=== PATIENT | female | born 1940 | race Caucasian/White ===

== ENCOUNTER 2017-02-07 14:07 | Emergency (ER) | payer MEDICARE ==
[~2017-02-07] VITALS: Ht 162.6 cm; Wt 77.1 kg
[2017-02-07 14:19] VITALS: BP 135/81
--- NOTE | 2017-02-07 14:22 | PHYS DOC ---
Adult General Chief Complaint Chief Complaint: LACERATION/AVULSION [facility] HPI Patient is a 76 year old female presents emergency room with complaint of a laceration to right index finger that occurred within the past 30 minutes. Patient states she cut her finger on a "old jelly jar" at home. She denies any additional injuries at this time. She cannot remember when her last tetanus shot was. Review of Systems Review of Systems Constitutional: Denies fever or chills [] Eyes: Denies change in visual acuity, redness, or eye pain [] HENT: Denies nasal congestion or sore throat [] Respiratory: Denies cough or shortness of breath [] Cardiovascular: No additional information not addressed in HPI [] GI: Denies abdominal pain, nausea, vomiting, bloody stools or diarrhea [] : Denies dysuria or hematuria [] Musculoskeletal: Denies back pain or joint pain [] Integument: Denies rash or skin lesions [] Neurologic: Denies headache, focal weakness or sensory changes [] Endocrine: Denies polyuria or polydipsia [] Current Medications Current Medications Current Medications Medications (Trade) Dose Ordered Sig/Real Start Time Stop Time Status Last Admin Dose Admin Diphtheria/ Tetanus/Acell Pertussis (Boostrix) 0.5 ml ONCE ONCE 02/07/17 15:00 02/07/17 15:01 Lidocaine/Sodium Bicarbonate (Buffered Lidocaine 1%) 20 ml 1X ONCE 02/07/17 15:00 02/07/17 15:01 Allergies Allergies Allergies Coded Allergies Type Severity Reaction Last Updated Verified No Known Drug Allergies 02/07/17 No Physical Exam Physical Exam Constitutional: Well developed, well nourished, mild distress, non-toxic appearance. [] HENT: Normocephalic, atraumatic, bilateral external ears normal, oropharynx moist, no oral exudates, nose normal. [] Eyes: PERRLA, EOMI, conjunctiva normal, no discharge. [] Neck: Normal range of motion, no tenderness, supple, no stridor. [] Cardiovascular:Heart rate regular rhythm, no murmur [] Lungs & Thorax: Bilateral breath sounds clear to auscultation [] Abdomen: Bowel sounds normal, soft, no tenderness, no masses, no pulsatile masses. [] Skin: Warm, dry, no erythema, no rash. [] Back: No tenderness, no CVA tenderness. [] Extremities: Right index finger with a flap laceration to the lateral aspect of the proximal phalanx. This laceration comes near the midline in the joint space but does not cross. Extensor and flexor mechanism is intact at both the DIPJ PIPJ. Fingers neurovascularly intact with capillary refill less than 2 seconds. Neurologic: Alert and oriented X 3, normal motor function, normal sensory function, no focal deficits noted. [] Psychologic: Affect normal, judgement normal, mood normal. [] Current Patient Data Vital Signs Vital Signs Date Time Temp Pulse Resp B/P Pulse Ox O2 Delivery O2 Flow Rate FiO2 02/07/17 14:19 86 18 98 EKG EKG [] Radiology/Procedures Radiology/Procedures Procedure note: 3.5 cm laceration to the base of the proximal phalanx of left index finger was anesthetized with buffered 1% lidocaine. Wound was cleansed with Betadine solution and rinsed with copious amounts of saline. Wound was explored for foreign bodies. No foreign bodies were found. The laceration did not extend into the extensor tendon region or the joint capsule of the second MCP J. Wound margins were approximated utilizing 5-0 nylon in a single-layer closure of a simple interrupted fashion for total of 7 stitches. Nonstick gauze was placed over top the laceration and bandaged in place with Coban. Patient tolerated the procedure well. Course & Med Decision Making Course & Med Decision Making Pertinent Labs and Imaging studies reviewed. (See chart for details) [] Dragon Disclaimer Dragon Disclaimer This electronic medical record was generated, in whole or in part, using a voice recognition dictation system. Departure Departure Impression: Primary Impression: Finger laceration Disposition: 01 HOME, SELF-CARE Condition: IMPROVED Patient Instructions: Diphtheria Toxoid; Tetanus Toxoid Adsorbed, DT, Td, Laceration Care, Adult, [id number] Additional Instructions: 1. Stitches will need to be removed in 10 days. Your okay to wash your hands and shower. Do not soak your hands. 2. Review the discharge instructions provided for self-care and reasons to return to the emergency department. 3. Contact your primary care doctor's office in the morning to schedule follow- up appointment for wound check and suture removal. VANNESSA BLEVINS Feb 07, 2017 14:22
[2017-02-07] MEDS ORDERED: DIPHTH,PERTUSS(ACELL),TET TOX 0.5 ML DISP.SYRIN. VAX IM ONE (15:00)
[2017-02-07] MEDS ORDERED: LIDOCAINE 1% / SOD BICARB 8.4% 20 ML VIAL. IJ ONE (15:00)
== END 2017-02-07 15:05 | disposition home or self-care (01) ==
LOC: ER 14:07
DX: S61.210A Laceration without foreign body of right index finger without damage to nail, initial encounter (principal); W25.XXXA Contact with sharp glass, initial encounter; Y93.89 Activity, other specified; Y92.89 Other specified places as the place of occurrence of the external cause; Y99.8 Other external cause status
CPT/HCPCS: 12002; 90471; 90715; 99283-25